=== PATIENT | male | born 1975 | race Caucasian/White ===

== ENCOUNTER 2024-12-25 09:06 | Outpatient (CLI) | payer BC, SELFPAY ==
--- NOTE | 2024-12-25 09:15 | CRLHL7_ITS ---
For Patients: As a result of the Century Cures Act, medical imaging exams and procedure reports are released immediately into your electronic medical record. You may view this report before your referring provider. If you have questions, please contact your health care provider. Indication: Pain in right hip Comparison: 12.17.24 Procedure : Informed consent was obtained. The site was marked. Time-out was performed. The skin of the right hip was cleansed with ChloraPrep. A sterile drape was placed. 8 cc of 1 percent lidocaine was administered for superficial anesthesia. Subsequently a 22 gauge spinal needle was introduced into the right hip under intermittent fluoroscopic guidance. Injection of 2 cc nonionic Omnipaque 240 contrast confirmed intra-articular location. Subsequently 11 cc of dilute gadolinium were injected. The needle was removed and hemostasis achieved with direct pressure. A dressing was placed. The patient tolerated the procedure well without immediate complication and was immediately sent to MRI for imaging. Total fluoroscopy time 54 seconds. Impression: Successful fluoroscopically guided right hip arthrogram for MRI. Dictated by Regino Escobedo MD @ 12/25/2024 10:53:11 AM (Electronically Signed)
--- NOTE | 2024-12-25 10:15 | MR_ITS ---
[address] [address] Phone:?[phone] Fax:?[phone] Referring Physician Information: Noah Godwin [address] [facility] [address] Phone:?[phone] Fax:?[phone] Patient:Darryl Chase D.O.B:?1975 Sex:?Male Phone:?[phone] [facility] MRN:?[id number] Exam Date:?12/25/2024 EXAM: MR ARTHROGRAM of the RIGHT HIP CLINICAL INFORMATION: Male, 49 years old, with hip pain INDICATION: Evaluate for labral tear PRIOR SURGERY: None reported. PLAIN FILMS: Radiographs 12/17/2024 COMPARISONS: MRI 01/16/2022 TECHNICAL INFORMATION: Exam performed after injection of gadolinium-based contrast into the right hip joint, reported separately. Using a 1.5T MR scanner: coronals: PD, T2, T1FS sagittals: PD, T2, T1FS axial obliques: PD axials: T2FS coronals of pelvis: T1, STIR SEDATION: None. CONTRAST: No intravenous contrast was administered. FINDINGS: Hip joint: Gadolinium-based contrast distends the hip joint, reflecting successful arthrography. No chondromalacia or focal full-thickness defect of the femoral head or acetabular articular cartilage. No intra-articular bodies. Labrum: There is blunting and fraying involving the anterior labrum, with additional fraying of partial-thickness tearing throughout the anterosuperior labrum, progressed from the prior exam (axial oblique series 8 images 13-10). The superior and posterosuperior labrum are intact. No evidence of paralabral ganglion cyst Proximal femur: No femoral occult fracture, stress injury, marrow edema or osteonecrosis. Decreased offset of the superior femoral head/neck junction consistent with cam morphology. Based on coronal series 6 image 23 at approximately 12 o'clock superiorly, the maximum femoral alpha angle measures approximately 73?. Acetabulum: No subchondral cysts, periacetabular ossicles or marrow edema. Coverage: Right lateral center edge (CE) angle measures approximately 28? (normal 25?-39?), midline coronal series 6 image 23. Ligamentum teres: Ligamentum teres is intact and unremarkable. Iliofemoral ligament: The iliofemoral ligament is intact without thickening. Pelvis osseous structures: Sacral ala and sacroiliac joints: No stress/insufficiency fractures or marrow edema/pathology. No demonstrable sacroiliitis. Pubic rami and pubic symphysis: No stress/insufficiency fractures or marrow edema/pathology. Normal alignment without hypertrophy or evidence of ongoing osteitis pubis. Myotendinous structures: Gluteus abductors: No convincing insertional tendinopathy or tear of gluteus minimus or medius. Adductors: No demonstrable tendinopathy or strain/tear. Hamstrings: Mild tendinosis of the common hamstrings tendons, without tear. Flexors: There is mild edema like signal along the myotendinous junction of the iliopsoas, without tendinopathy or tear. The rectus femoris is unremarkable. External rotators: Intact, without demonstrable ischiofemoral impingement. Gluteal aponeurotic fascia and IT band: Unremarkable. Bursae: No demonstrable trochanteric, iliopsoas, or iliopectineal bursitis. Intrapelvic contents: Free fluid: No free fluid seen within the pelvis. Pelvic viscera: No discrete intrapelvic mass is identified. Bilateral hydroceles are again visualized, mildly progressed. Lymph nodes: No lymphadenopathy by MRI size criteria. Neurovascular structures: No discrete cyst, mass or other compression upon the portions visualized of sciatic or femoral nerves. IMPRESSION: 1. Fraying and partial-thickness tearing of the anterosuperior labrum, progressed from the prior exam. 2. 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 Normal volume hip. 3. Mild grade 1 myotendinous strain of the iliopsoas, without tear. 4. Mild tendinosis of the common hamstrings tendons, without tear. 5. No stress/occult fracture. No avascular necrosis. 6. Normal thickness and signal of femoral and acetabular articular cartilage. 7. Bilateral hydroceles, mildly progressed from the prior exam. Correlate with symptomatology and patient history. KME Electronically signed on 12/31/2024 9:53:00 AM by Kayla Grigsby M.D.
== END 2024-12-25 09:07 | disposition home or self-care (01) ==
LOC: RAD 09:08
PROVIDERS: PCP Family Medicine; Visit Provider Physician Assistant
DX: M25.551 Pain in right hip (principal); S73.191A Other sprain of right hip, initial encounter; N43.2 Other hydrocele
CPT/HCPCS: 27093; 73525; 73722; 77002; A9575; Q9966